=== PATIENT | male | born 1965 ===

== ENCOUNTER 2024-06-07 05:53 | Day surgery (SDC) | payer OTHER ==
[2024-06-01 11:54] LABS: HEMATOCRIT 43.7 % (39.0-48.0); HEMOGLOBIN 14.9 g/dL (13-16.00); MEAN CELL VOLUME 99.1 fL (80.0-100.00); MEAN CORPUSCULAR HEMOGLOBIN 33.9 pg (27.00-32.0); MEAN CORPUSCULAR HGB CONC 34.2 g/dl (32.0-36.0); PH,URINE 6.5 (5.0-8.0); PLATELET COUNT 291 K/uL (150-450); RED BLOOD COUNT 4.41 M/uL (4.00-6.00); RED CELL DISTRIBUTION WIDTH 13.1 % (11.5-14.5); URINE APPEARANCE Clear; URINE BILIRRUBIN Negative (NEGATIVE); URINE BLOOD Negative; URINE COLOR Yellow; URINE GLUCOSE Negative (NEGATIVE); URINE KETONE Negative (NEGATIVE); URINE LEUKOCYTE Trace; URINE NITRATE Negative; URINE PROTEIN Negative (NEGATIVE); URINE UROBILINOGEN 0.2 E.U./dl
[2024-06-01 11:59] LABS: URINE BACTERIA 15.8 uL (0.0-1933); URINE EPITHELIAL CELLS 1.4 uL (0.0-38.8); URINE RBC 3.9 uL (0.0-20.8); URINE WBC 12.7 uL (0.0-23.2)
[2024-06-01 13:04] LABS: CALCIUM 9.1 mg/dL (8.5-10.1); CREATININE SERUM 0.88 mg/dL (0.70-1.30); GFR 89.58; POTASSIUM 4.68 mEq/L (3.5-5.1)
[2024-06-01 13:13] LABS: INR 0.94; PARTIAL THROMBOPLASTIN TIME 24.6 SECONDS (22.0-34.0); PROTHROMBIN TIME 10.3 SECONDS (9.0-11.5)
[~2024-06-07 05:53] MED LIST: BUPROPION XL450 MG; METFORMIN HCL500 M3; XANAX XR0.5 MG PO
[2024-06-07] MEDS ORDERED: CEFAZOLIN SODIUM 1,000 MG VIAL ONE (11:05)
[2024-06-07] MEDS ORDERED: BUPIVACAINE HCL 30 ML VIAL IJ ONE (13:15)
[2024-06-07] MEDS ORDERED: KETOROLAC TROMETHAMINE 30 MG VIAL ONE (13:31)
[2024-06-07] MEDS ORDERED: TYLENOL ARTHRI650 MG PO (13:36)
[2024-06-07] MEDS ORDERED: TRAMADOL HCL50 MG PO (13:36)
[2024-06-07] MEDS ORDERED: MIRALAX17 GM PO (13:36)
[2024-06-07] MEDS ORDERED: KETO10TA2 PO (13:36)
== END 2024-06-07 19:00 | disposition home or self-care (01) ==
LOC: CIR.AMB 05:53
PROVIDERS: ATTEND Surgery
DX: K40.90 Unilateral inguinal hernia, without obstruction or gangrene, not specified as recurrent (principal); K42.0 Umbilical hernia with obstruction, without gangrene; E11.9 Type 2 diabetes mellitus without complications; F32.A Depression, unspecified
CPT/HCPCS: 49650; 49592; C1781